=== PATIENT | male | born 1995 | race Caucasian/White ===

== ENCOUNTER 2020-06-08 08:00 | Outpatient (RCR) | payer OTHER, SELFPAY ==
[2020-05-03 07:26] VITALS: BMI 32.5
--- NOTE | 2020-05-25 11:30 | HP.OTEVAL_ITS ---
Patient's Visit Information SHANICE HOLLINGSWORTH is a 24 year old M, referred to Occupational Therapy by ADDISON Epstein, with a diagnosis of right Dequervains tenosynovitis M65.4. Date of Evaluation: 05/25/20 Occupational Therapist: Kimberly Ruiz, OTR/Davida, CHT - Subjective This 24 year old male was seen for for OT eval with dx of right wrist strain/sprain. 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 and pt has been on and off work restrictions. Pt sates he is left handed- states pain runs from CMC to Radial styloind region. Pt states heat makes his hand hurt more. pt would like to return to his PLOF - Pain right wrist 0 Pain Intensity Range: 0, 7 - ROM Wrist: right 70/30 with flexion pain left 70/30 CMC: right 5 left 15 MP: right 55 left 60 IP: right 85 left 80 ROM Comments: right UD 30 RD 10. left RD25 UD 35 - Strength Gis Software Engineer: right 115 left 105 Lateral Pinch: right 20# left 20# Tripod Pinch: right 20# left 22# Tip-to-Tip Pinch: right 12# left 14# - Sensation Sensation Comments: denies - Special Tests WHAT Test: positive - Quick DASH-Disab of Arm,Shoulder& Hand Quick DASH Score: 50.0000 - Goals Goal:: pt will demo right thumb ROM equal to unaffected hand by d/c to increase pts ind.with ADls and work tasks by d/c Goal:: pt will report left wrist pain no greater than 1/10 with use of right UE with ADLs/ IADls and work tasks by d/c Goal:: pt will demo understanding of wrist ergo to prevent further injury or stress on tendon during daily and work tasks by d/c - Rehabilitation General Assessment: Pt demo with positive symptoms of Dequervains tenosynovitis. pts pain is limiting functional use of left UE with ADls and work tasks. Pt would benefit from skilled therapy services to decrease pain, ed. on wrist ergo. and isometric strengthening to return pt to PLOF. pt demo understanding and agreee to POC. Rehabilitation Potential: Good - Anticipated Interventions A/AAROM/PROM, Strengthening, Triggerpoint Release, Modalities, Orthoses, Ergonomic Education - Visit Plan Frequency: 2-3x /Week Duration: 4 Weeks TEXT: Thank you for the opportunity to evaluate your patient. For Medicare and Medicare HMO plans, please review the plan of care and approve it. It will need to be FAXED BACK to us at [phone] for Medicare purposes. Please let me know if there are questions or concerns regarding this plan of care. Physician Signature: Date:
--- NOTE | 2020-06-08 09:26 | HP.OTDCSUM_ITS ---
It has been my pleasure to treat SHANICE HOLLINGSWORTH under orders from ADDISON Epstein, for the diagnosis of right Dequervains tenosynovitis M65.4 for a total of 8 visit(s). Please see the following information for a summary of their discharge status. % Improvement: 95 Objective/Function: rigth lateral pinch 20#. right tripod pinch 20#. right dental assistant medical assistant strength 100# with out pain. pt demo with full wrist and thumb ROM pain free. pt has met OT goals and is to continue with Eccentric ex, and wrsit ex. as estephanie. Patient Goals: Decrease Pain, Use Hand/Wrist/Arm Normally Again Goal:: pt will demo right thumb ROM equal to unaffected hand by d/c to increase pts ind.with ADls and work tasks by d/c Goal:: pt will report left wrist pain no greater than 1/10 with use of right UE with ADLs/ IADls and work tasks by d/c Goal:: pt will demo understanding of wrist ergo to prevent further injury or stress on tendon during daily and work tasks by d/c Plan: d/c Discharge Comments: pt was seen for 11/13 approved OT visits. Pt c9 approval end date is 06/09/20. pt has made good gains with is ROM and tolerates PRE and eccentric ex. well. Pt has met goals in OT and is d/c. Pt to cont with HEP of eccenric ex. use of good wrist ergo. with work and daily tasks- wear brace and wean out of brace of July. if pt has issues he is to return to for further evaluation. pt d/c and agree to POC If there are questions or concerns regarding this patient's occupational therapy, please fell free to call me at [phone]. Thank you for the referral of this patient. Sincerely, Kimberly Ruiz, OTR/L, CHT
== END 2020-06-08 19:00 | disposition home or self-care (01) ==
LOC: OT 08:00
PROVIDERS: PCP Family Medicine; Referring Provider Physician Assistant; Visit Provider Physician Assistant
DX: S66.911D Strain of unspecified muscle, fascia and tendon at wrist and hand level, right hand, subsequent encounter (principal)
CPT/HCPCS: 97035; 97110; 97140; 97166